=== PATIENT | male | born 1950 | race Caucasian/White ===

== ENCOUNTER → 2018-07-04 | Outpatient (CLI) | payer OTHER ==
[~2018-07-04] MED LIST: REGADENOSON 0.4 MG/5 ML DISP.SYRIN. IV ONE
--- NOTE | 2018-07-04 15:34 | PCVCIMAG ---
APPROVED REPORT Study performed: 07/04/2018 14:27:25 EXAM: Comprehensive 2D, Doppler, and color-flow Echocardiogram Patient Location: Echo lab Status: routine BSA: 2.49 HR: 71 bpmBP: 172/81 mmHg Rhythm: NSR w/ frequent PVCs and PACs Other Information Study Quality: Adequate Technically limited study due to body habitus. Risk Factors: Cardiac Risk Factors: HTN Indications Pre-Op Dyspnea Chest Pain 2D Dimensions IVSd: 15.13 (7-11mm) LVDd: 42.52 mm PWd: 15.00 (7-11mm)Ascending Ao: 35.66 (22-36mm) LVDs: 35.73 (25-40mm) Left Atrium: 40.84 (27-40mm) Aortic Root: 30.28 mm LV Single Plane 4CH: 47.58 % LV Single Plane 2CH: 53.14 % Biplane EF: 49.2 % Volumes Left Atrial Volume (Systole) Single Plane 4CH: 78.50 mLSingle Plane 2CH: 76.02 mL LA ESV Index: 31.00 mL/m2 Aortic Valve AoV Peak Elvin.: 1.26 m/s AO Peak Gr.: 6.33 mmHgLVOT Max P.25 mmHg LVOT Max V: 1.03 m/s Mitral Valve E/A Ratio: 1.5 MV Decel. Time: 342.51 ms MV E Max Elvin.: 0.54 m/s MV A Elvin.: 0.37 m/s IVRT: 114.19 ms Pulmonary Valve PV Peak Elvin.: 0.94 m/sPV Peak Gr.: 3.55 mmHg Pulmonary Vein P Vein S: 0.25 m/sP Vein A: 0.29 m/s P Vein D: 0.40 m/sP Vein A Dur.: 138.4 msec P Vein S/D Ratio: 0.63 Tricuspid Valve TR Peak Elvin.: 2.56 m/s TR Peak Gr.: 26.17 mmHg Left Ventricle The left ventricle is normal size. There is normal LV segmental wall motion. Moderate concentric left ventricular hypertrophy. Left ventricular systolic function is normal. The left ventricular ejection fraction is within the normal range. LVEF is 50-55%. The left ventricular diastolic function is normal. Right Ventricle The right ventricle is normal size. The right ventricular systolic function is normal. Atria Left atrium is at the upper limits of normal. The right atrium size is normal. Aortic Valve The aortic valve is normal in structure. No aortic regurgitation is present. There is no aortic valvular stenosis. Mitral Valve The mitral valve is normal in structure. Mild mitral regurgitation. No evidence of mitral valve stenosis. Tricuspid Valve The tricuspid valve is normal in structure. Mild tricuspid regurgitation with PAP of 33 mmHg. Pulmonic Valve The pulmonary valve is normal in structure. Mild pulmonic regurgitation. Great Vessels The aortic root is normal in size. IVC is normal in size and collapses >50% with inspiration. Pericardium There is no pericardial effusion. There is no pleural effusion. <Conclusion> The left ventricle is normal size. LVEF is 50-55%. The left ventricular diastolic function is normal. The right ventricle is normal size. Left atrium is at the upper limits of normal. The aortic valve is normal in structure. There is no aortic valvular stenosis. Mild mitral regurgitation. Mild tricuspid regurgitation with PAP of 33 mmHg. The aortic root is normal in size. There is no pericardial effusion.
--- NOTE | 2018-07-04 15:51 | PCVCIMAG ---
APPROVED REPORT Imaging Protocol: Rest Tc-99m/Stress Tc-99m 1 day Study performed: 07/04/2018 14:01:39 Indication: Chest pain, Dyspnea, Pre op Patient Location: Out-Patient Stress Nurse: Lissa Garcia RN, Ashley Johnson RN GA Tech:Sumanth Brewster NMTCB Ht: 6 ft 0 in Wt: 298 lbs BSA: 2.52 m2 HR: 69 bpm BP: 172/81 mmHg BMI: 40.41 Rhythm: Sinus Rhythm Medical History Medical History: Age, HTN, Dm Medications: Ibuprofen Allergies: No known drug allergies Pretest Chest Pain Characteristics: No chest pain Exercise History: Physically active Resting Data Rest SPECT myocardial perfusion imaging was performed in supine position 45 minutes following the intravenous injection of 15.4 mCi of Tc-99m Sestamibi. Time of rest injection: 1320 Date: 07/04/2018 Administration Route: IV Administration Site: Right AC Pharmacologic Stress Pharmacologic stress test was performed by injecting Regadenoson 0.4 mg IV push over 10-15 seconds immediately followed by the intravenous injection of 46.4 mCi of Tc-99m Sestamibi. Time of stress injection: 1430 Date: 07/04/2018 Administration Route: IV Administration Site: Right AC Gated Stress SPECT was performed 45 minutes after stress injection. The images were gated to evaluate regional wall motion and calculate left ventricular ejection fraction. Stress Test Details Stress Test: Pharmacologic stress testing performed using 0.4 mg of regadenoson per 5 mL given IV over 10 seconds. Reason for pharmacologic stress test: knee pain. HRMax Heart Rate (APMHR): 152 bpm Resting HR: 69 bpmTarget HR (85% APMHR): 129 bpm Max HR Achieved: 72 bpm % of APMHR: 47 Recovery HR: 71 bpm BP Resting BP: 172/81 mmHg Max BP: 170/78 mmHg Recovery BP: 167/82 mmHg ECG Resting ECG: Sinus Rhythm Stress ECG: Sinus Rhythm ST Change: Non-ischemic Arrhythmia: PAC's, PVC's Recovery ECG: Sinus Rhythm Clinical Reason for Termination: Completed protocol Stress Symptoms: Headache Exercise duration: min 55 sec Symptoms resolved with caffeine. Study Quality Study: Good Artifact: Mild Diaphragmatic artifact Study Data Post stress, the left ventricular ejection was 69%.. SSS: 3 SRS: 2 SDS: 3 TID = 0.98. Perfusion There is a small area of mildly reduced uptake in the basal segment of the inferior wall which is seen on the stress images as well as the resting images. This area thickens and moves normally and is most consistent with attenuation artifact. Wall Motion Normal left ventricular wall motion. Nuclear Conclusion ECG Findings: negative for ischemia Clinical Findings: non-diagnostic Nuclear Findings: negative for ischemia Exercise Capacity: not assessed Left Ventricular Function: normal This study is of low probability for inducible ischemia or prior infarct. Normal global and segmental LV systolic function. Artifact: Mild Diaphragmatic artifact
== END | disposition home or self-care (01) ==
LOC: PCVCIMAG 13:04
PROVIDERS: ATTEND Internal Medicine Cardiovascular Disease
DX: Z01.810 Encounter for preprocedural cardiovascular examination (principal); I08.1 Rheumatic disorders of both mitral and tricuspid valves; R06.00 Dyspnea, unspecified; R07.9 Chest pain, unspecified
CPT/HCPCS: 78452; 93017; 93306; A9500; J2785